=== PATIENT | male | born 1955 | race Asian ===

== ENCOUNTER 2016-08-25 11:15 | Outpatient (CLI) | payer OTHER ==
--- NOTE | 2016-08-25 14:04 | Diagnostic Imaging Report ---
Chest x-ray single view History: Cough The heart size is normal. No focal pulmonary parenchymal processes. No hilar or mediastinal abnormalities. Impression: No acute abnormalities
== END 2016-08-25 12:00 | disposition home or self-care (01) ==
LOC: RAD 11:15
PROVIDERS: ATTEND Family Medicine
DX: R07.82 Intercostal pain (principal)
CPT/HCPCS: 71010-TC

== ENCOUNTER 2016-09-22 07:06 | Outpatient (CLI) | payer OTHER ==
[2016-09-22 07:34] LABS: % BASOPHILS 1.2 % (0.0-2.0); % EOSINOPHILS 2.4 % (0.0-5.0); % LYMPHOCYTES 30.2 % (20.0-50.0); % MONOCYTES 8.1 % (2.0-10.0); % NEUTROPHILS 58.1 % (40.0-80.0); HEMATOCRIT 40.1 % (39.0-49.0); HEMOGLOBIN 13.6 gm/dL (13.2-17.3); MEAN CELL VOLUME 88.7 fl (80-99); MEAN CORPUSCULAR HGB CONC 33.8 pg (28.0-36.0); MEAN PLATELET VOLUME 8.4 fl; NEUTROPHILE ABSOLUTE 3.7 Th/cmm (1.8-8.0); PLATELET COUNT 268 Th/cmm (150-400); RED BLOOD COUNT 4.52 Mil/cmm (4.30-5.70); RED CELL DISTRIBUTION WIDTH 12.3 % (11.5-20.0)
[2016-09-22 07:38] LABS: WHITE BLOOD COUNT 6.4 Th/cmm (4.8-10.8)
[2016-09-22 07:54] LABS: ALB/GLOB RATIO 1.2 (1.0-1.8); ALKALINE PHOSPHATASE 81 U/L (34-104); ANION GAP 12.9 (7.0-16.0); BILIRUBIN,TOTAL 0.7 mg/dL (0.3-1.0); BUN - UREA NITROGEN 20 mg/dL (7-25); CALCIUM SERUM 10.1 mg/dL (8.6-10.3); CARBON DIOXIDE 29.7 mEq/L (21.0-31.0); CHLORIDE 100 mEq/L (98-107); CHOLESTEROL 122 mg/dL (<200); CREATININE - SERUM 0.8 mg/dL (0.7-1.3); GLUCOSE 107 mg/dL (70-105); POTASSIUM SERUM 3.6 mEq/L (3.5-5.1); SGOT 24 U/L (13-39); SGPT/ALT 46 U/L (7-52); SODIUM SERUM 139 mEq/L (136-145); TRIGLYCERIDES 112 mg/dL (<150)
[2016-09-23 10:19] LABS: T4 FREE 1.72 ng/dL (0.82-1.77)
== END 2016-09-22 07:25 | disposition home or self-care (01) ==
LOC: LAB 07:06
DX: E89.0 Postprocedural hypothyroidism (principal); E66.3 Overweight; I10 Essential (primary) hypertension; E78.2 Mixed hyperlipidemia; Z83.3 Family history of diabetes mellitus
CPT/HCPCS: 36415-UA; 80053-TC; 80061-TC; 82306-90; 83036-90; 84439-90; 84443-TC; 85025-TC

== ENCOUNTER 2016-10-07 07:00 | Emergency (ER) | payer OTHER ==
[2016-10-07 07:27] VITALS: BP 144/91
[2016-10-07 08:13] LABS: % BASOPHILS 0.9 % (0.0-2.0); % EOSINOPHILS 1.9 % (0.0-5.0); % LYMPHOCYTES 29.4 % (20.0-50.0); % MONOCYTES 7.2 % (2.0-10.0); % NEUTROPHILS 60.6 % (40.0-80.0); HEMATOCRIT 39.7 % (39.0-49.0); HEMOGLOBIN 13.4 gm/dL (13.2-17.3); MEAN CELL VOLUME 88.7 fl (80-99); MEAN CORPUSCULAR HEMOGLOBIN 29.9 pg (26.0-30.0); MEAN CORPUSCULAR HGB CONC 33.8 pg (28.0-36.0); MEAN PLATELET VOLUME 7.9 fl; NEUTROPHILE ABSOLUTE 5.3 Th/cmm (1.8-8.0); PLATELET COUNT 313 Th/cmm (150-400); RED BLOOD COUNT 4.48 Mil/cmm (4.30-5.70); RED CELL DISTRIBUTION WIDTH 12.1 % (11.5-20.0)
[2016-10-07 08:17] LABS: WHITE BLOOD COUNT 8.8 Th/cmm (4.8-10.8)
[2016-10-07 08:28] LABS: ALB/GLOB RATIO 1.3 (1.0-1.8); ALKALINE PHOSPHATASE 74 U/L (34-104); ANION GAP 9.1 (7.0-16.0); BILIRUBIN,TOTAL 0.6 mg/dL (0.3-1.0); BUN - UREA NITROGEN 19 mg/dL (7-25); BUN/CREATININE RATIO 21.1; CALCIUM SERUM 9.7 mg/dL (8.6-10.3); CARBON DIOXIDE 25.5 mEq/L (21.0-31.0); CHLORIDE 104 mEq/L (98-107); CREATININE - SERUM 0.9 mg/dL (0.7-1.3); GLUCOSE 118 mg/dL (70-105); INR 0.98 (0.5-1.4); POTASSIUM SERUM 3.6 mEq/L (3.5-5.1); PROTHROMBIN TIME (TEST) 10.2 SECONDS (9.5-11.5); SGOT 29 U/L (13-39); SGPT/ALT 37 U/L (7-52); SODIUM SERUM 135 mEq/L (136-145)
[2016-10-07 08:29] LABS: CHOLESTEROL 111 mg/dL (<200); TRIGLYCERIDES 80 mg/dL (<150)
--- NOTE | 2016-10-07 08:52 | Diagnostic Imaging Report ---
CHEST X-RAY: AP view INDICATION: Fall COMPARISON: Chest x-ray 08/25/2016 FINDINGS: No focal consolidation pleural effusions or evidence of a pneumothorax. Heart size normal. Degenerative changes of the spine are noted. IMPRESSION: No focal acute pulmonary process.
--- NOTE | 2016-10-07 08:55 | Diagnostic Imaging Report ---
Left knee 2 views Indication: Fall Comparison: none Findings: Mild degenerative changes are noted with marginal osteophytic spurring. Nonspecific calcification is seen along the posterior tibiofibular region possibly due to old trauma. No evidence of an acute fracture. No gross joint effusion. Distal quadriceps spurring is noted. There is mild prepatellar soft tissue swelling. Impression: No evidence of an acute fracture. Mild prepatellar soft tissue swelling Mild degenerative changes. In the setting of trauma, if clinical symptoms persist and there is continued concern for an occult fracture, follow up exams in 5-7 days is suggested.
--- NOTE | 2016-10-07 09:19 | Diagnostic Imaging Report ---
Right knee 2 views Indication: Trauma Comparison: none Findings: Mild to moderate degenerative changes are seen. There is subtle lucency seen along the superior pole of the patella. There may be a small joint effusion. There is a 4 mm calcification seen along the popliteal region. Impression: Lucency seen along the superior pole of the patella. Findings may represent age-indeterminate, possibly old trauma or may be a congenital variant. Please correlate with clinical findings and point tenderness in this region. Otherwise no evidence of an acute fracture. [id number] degenerative changes. 4 mm calcification is seen along the popliteal fossa region. Findings may represent a previous loose body. If indicated short-term follow-up MRI may be obtained. Small joint effusion suspected. In the setting of trauma, if clinical symptoms persist and there is continued concern for an occult fracture, follow up exams in 5-7 days is suggested.
--- NOTE | 2016-10-07 09:19 | ED Physician Chart ---
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 HE IS CONCERNED ABOUT HIS KNEES, WRIST AND HEADACHE. HE RECENTLY HAD THYROID SURGERY AND HAS A HISTORY OF HYPERTENSION, THYROID DISEASE AND ELEVATED CHOLESTEROL. HE CURRENTLY DENIES HEART PAIN. Allergies:: Allergies Allergy/AdvReac Type Severity Reaction Status Date / Time No Known Allergies Allergy Verified 10/07/16 07:27 Vitals:: Vital Signs - 8 hr 10/07/16 07:27 Temp 98.4 F HR 87 RR 20 BP 144/91 O2 Sat % 97 Historian:: Patient, Medical Records Review:: Nurse's Note Reviewed, Old Chart Reviewed Review of Systems - Review of Systems General/Constitutional: No fever, No chills, No weight loss, No weakness, No diaphoresis, No edema, No loss of appetite Skin: No skin lesions, No rash, No bruising Head: Headache, No light-headedness Eyes: No loss of vision, No pain, No diplopia ENT: No earache, No nasal drainage, No sore throat, No tinnitus Neck: No neck pain, No swelling, No thyromegaly, No stiffness, No mass noted Cardio Vascular: No chest pain, No palpitations, No PND, No orthopnea, No edema Pulmonary: No SOB, No cough, No sputum, No wheezing GI: No nausea, No vomiting, No diarrhea, No pain, No melena, No hematochezia, No constipation, No hematemesis G/U: No dysuria, No frequency, No hematuria Musculoskeletal: Bone or joint pain, No back pain, No muscle pain Endocrine: No polyuria, No polydipsia Psychiatric: No prior psych history, No depression, No anxiety, No suicidal ideation Hematopoietic: No bruising, No lymphadenopathy Allergic/Immuno: No urticaria, No angioedema Neurological: No syncope, No focal symptoms, No weakness, No paresthesia, No headache, No seizure, No dizziness, No confusion, No vertigo Past Medical History - Past Medical History Obtainable: Yes Past Medical History: HTN, Dyslipidemia, Thyroid disorder Family History: None Social History: Non Smoker, No Alcohol, No Drug Use Surgical History: other (THYROIDECTOMY) Psychiatricy History: None Medication: Reviewed Family Medical History - Family Member Mother History Unknown: Yes Ethnicity: Non- Living Status: Still Living Hx Family Cancer: No Hx Family Coronary Artery Disease: No Hx Family Congestive Heart Failure: No Hx Family Hypertension: No Hx Family Stroke: No Hx Family Diabetes: Yes Hx Family Seizures: No Hx Family Dementia: No Hx Family AIDS: No Hx Family HIV: No Hx Family COPD: No Hx Family Hepatitis: No Hx Family Psychiatric Problems: No Hx Family Tuberculosis: No Physical Exam - Physical Examination General/Constitutional: Awake, Well-developed, well-nourished, Alert, No distress, GCS 15, Non-toxic appearing, Ambulatory Head: Atraumatic Eyes: Lids, conjuctiva normal, PERRL, EOMI Skin: Nl inspection, No rash, No skin lesions, No ecchymosis, Well hydrated, No lymphadenopathy ENMT: External ears, nose nl, Nasal exam nl, Lips, teeth, gums nl Neck: Nontender, Full ROM w/o pain, No JVD, No nuchal rigidity, No bruit, No mass, No stridor Respiratory: Nl effort/Exclusion, Clear to Auscultation, No Wheeze/Rhonchi/Rales Cardio Vascular: RRR, No murmur, gallop, rubs, NL S1 S2 GI: No tenderness/rebounding/guarding, No organomegaly, No hernia, Normal BS's, Nondistended, No mass/bruits, No McBurney tenderness : No CVA tenderness Extremities: Full ROM, normal strength in all extremities, No edema, Normal digits & nails Other Extremities comments:: THERE IS TENDERNESS OF BOTH KNEE WITH NORMAL ROM BUT PAINFUL. BOTH WRIST ARE TENDER WITH NORMAL ROM AND THERE IS NO DEFORMITY NOTED. Neuro/Psych: Alert/oriented, DTR's symmetric, Normal sensory exam, Normal motor strength, Judgement/insight normal, Mood normal, Normal gait, No focal deficits Misc: normal gait, Normal back, No paraspinal tenderness Labs/Radiology/EKG Results - Lab Results Results: Laboratory Tests 10/07/16 10/07/16 10/07/16 07:50 07:50 07:50 WBC 8.8 D RBC 4.48 Hgb 13.4 Hct 39.7 MCV 88.7 MCH 29.9 MCHC Differential 33.8 RDW 12.1 Plt Count 313 MPV 7.9 Neutrophils % 60.6 Lymphocytes % 29.4 Monocytes % 7.2 Eosinophils % 1.9 Basophils % 0.9 PT 10.2 INR 0.98 Sodium Potassium Chloride Carbon Dioxide Anion Gap BUN Creatinine Est GFR ( Amer) Est GFR (Non-Af Amer) BUN/Creatinine Ratio Glucose Calcium Total Bilirubin AST ALT Alkaline Phosphatase Troponin I Total Protein Albumin Globulin Albumin/Globulin Ratio Triglycerides 80 Cholesterol 111 LDL Cholesterol Direct 62 L HDL Cholesterol 39 10/07/16 10/07/16 07:50 07:50 WBC RBC Hgb Hct MCV MCH MCHC Differential RDW Plt Count MPV Neutrophils % Lymphocytes % Monocytes % Eosinophils % Basophils % PT INR Sodium 135 L Potassium 3.6 Chloride 104 Carbon Dioxide 25.5 Anion Gap 9.1 BUN 19 Creatinine 0.9 Est GFR ( Amer) > 60.0 Est GFR (Non-Af Amer) > 60.0 BUN/Creatinine Ratio 21.1 Glucose 118 H Calcium 9.7 Total Bilirubin 0.6 AST 29 ALT 37 Alkaline Phosphatase 74 Troponin I 0.01 Total Protein 7.6 Albumin 4.3 Globulin 3.3 Albumin/Globulin Ratio 1.3 Triglycerides Cholesterol LDL Cholesterol Direct HDL Cholesterol - EKG Interpretations EKG Time:: 07:42 Rhythm: SINUS [place]: RIGHT Rate: 77 ED Septic Shock - . Is Septic Shock (SBP<90, OR Lactate>4 mmol\L) present?: No - <6hrs of presentation: Vital Signs: Vital Signs - 8 hr 10/07/16 07:27 Temp 98.4 F HR 87 RR 20 BP 144/91 O2 Sat % 97 Reassessment (Disposition) - Reassessment Reassessment Condition:: Improved - Diagnosis Diagnosis:: CONTUSION OF BOTH KNEES CONTUSION OF BOTH HANDS LEFT SHOULDER PAIN - Aftercare/Follow up Instructions Aftercare/Follow-Up Instructions:: Counseled pt regarding lab results/diagnosis & need follow up, Refer to Discharge Instructions, Counseled pt & family regarding lab results/diagnosis & need follow up Medication Prescribed:: MOTRIN - Patient Disposition Discharge/Transfer:: Home Condition at Disposition:: Improved
--- NOTE | 2016-10-07 09:21 | Diagnostic Imaging Report ---
Right wrist 3 views Indication: Trauma Comparison: none Findings: Mild to moderate degenerative changes are noted. Small subchondral cystic changes of the carpal bones are noted. No evidence of an acute fracture or significant focal soft tissue swelling. Impression: No evidence of an acute fracture. [id number] degenerative changes. In the setting of trauma, if clinical symptoms persist and there is continued concern for an occult fracture, follow up exams in 5-7 days is suggested.
--- NOTE | 2016-10-07 09:22 | Diagnostic Imaging Report ---
Left wrist 3 views Indication: Fall Comparison: none Findings: Mild to moderate degenerative changes are noted. An old ulnar styloid fracture is noted. No evidence of an acute fracture or significant focal soft tissue swelling. Impression: Old ulnar styloid fracture. No evidence of an acute fracture. Mild to moderate degenerative changes. In the setting of trauma, if clinical symptoms persist and there is continued concern for an occult fracture, follow up exams in 5-7 days is suggested.
--- NOTE | 2016-10-07 09:42 | Diagnostic Imaging Report ---
Head CT without intravenous contrast Indication: fall Comparison: Head CT on 08/13/2014 Technique: Axial images were obtained from the vertex to the skull base without IV contrast. Coronal reconstructions were made. Total DLP: 537, CTDI31.4 FINDINGS: Images of the brain obtained without contrast demonstrate no acute hemorrhage. No mass lesions identified. The ventricles and basal cisterns are patent. The moore-white matter differentiation is preserved. There is no mass effect or midline shift. No skull fractures identified. No soft tissue swelling. The paranasal sinuses are clear. IMPRESSION: No acute intracranial abnormality.
== END 2016-10-07 10:55 | disposition home or self-care (01) ==
LOC: ER 07:00
DX: S80.02XA Contusion of left knee, initial encounter (principal); S80.01XA Contusion of right knee, initial encounter; S60.222A Contusion of left hand, initial encounter; S60.221A Contusion of right hand, initial encounter; I10 Essential (primary) hypertension; E78.5 Hyperlipidemia, unspecified; E07.9 Disorder of thyroid, unspecified; E89.0 Postprocedural hypothyroidism; W01.0XXA Fall on same level from slipping, tripping and stumbling without subsequent striking against object, initial encounter; Y93.89 Activity, other specified; Y92.89 Other specified places as the place of occurrence of the external cause; Y99.8 Other external cause status
CPT/HCPCS: 36415-UA; 70450-TC; 71010-TC; 73100-TC-LT; 73100-TC-RT; 73560-TC-LT; 73560-TC-RT; 80053-TC; 80061-TC; 84443-TC; 84484-TC; 85025-TC; 85610-TC; 93005

== ENCOUNTER 2016-10-18 07:06 | Outpatient (CLI) | payer OTHER | END 2016-10-18 07:34 | disposition home or self-care (01) | LOC: LAB 07:06 | DX: N40.1 Benign prostatic hyperplasia with lower urinary tract symptoms (principal) | CPT/HCPCS: 84153-90 ==

== ENCOUNTER 2017-02-02 06:56 | Outpatient (CLI) | payer OTHER ==
[2017-02-02 07:30] LABS: % BASOPHILS 0.1 % (0.0-2.0); % EOSINOPHILS 2.9 % (0.0-5.0); % MONOCYTES 8.2 % (2.0-10.0); % NEUTROPHILS 64.8 % (40.0-80.0); HEMATOCRIT 42.3 % (39.0-49.0); HEMOGLOBIN 14.1 gm/dL (13.2-17.3); MEAN CELL VOLUME 89.4 fl (80-99); MEAN CORPUSCULAR HEMOGLOBIN 29.7 pg (26.0-30.0); MEAN CORPUSCULAR HGB CONC 33.2 pg (28.0-36.0); MEAN PLATELET VOLUME 7.8 fl; NEUTROPHILE ABSOLUTE 5.1 Th/cmm (1.8-8.0); PLATELET COUNT 303 Th/cmm (150-400); RED BLOOD COUNT 4.73 Mil/cmm (4.30-5.70); WHITE BLOOD COUNT 7.7 Th/cmm (4.8-10.8)
[2017-02-02 07:51] LABS: ALB/GLOB RATIO 1.3 (1.0-1.8); ALKALINE PHOSPHATASE 74 U/L (34-104); ANION GAP 8.1 (7.0-16.0); BILIRUBIN,TOTAL 0.7 mg/dL (0.3-1.0); BUN - UREA NITROGEN 16 mg/dL (7-25); BUN/CREATININE RATIO 22.9; CALCIUM SERUM 9.8 mg/dL (8.6-10.3); CARBON DIOXIDE 29.6 mEq/L (21.0-31.0); CHLORIDE 101 mEq/L (98-107); CHOLESTEROL 119 mg/dL (<200); CREATININE - SERUM 0.7 mg/dL (0.7-1.3); GLUCOSE 103 mg/dL (70-105); POTASSIUM SERUM 3.7 mEq/L (3.5-5.1); SGOT 26 U/L (13-39); SGPT/ALT 32 U/L (7-52); SODIUM SERUM 135 mEq/L (136-145); TRIGLYCERIDES 82 mg/dL (<150)
[2017-02-04 15:49] LABS: T4 FREE 1.73 ng/dL (0.82-1.77)
== END 2017-02-02 07:25 | disposition home or self-care (01) ==
LOC: LAB 06:56
DX: I10 Essential (primary) hypertension (principal); E89.0 Postprocedural hypothyroidism; E55.9 Vitamin D deficiency, unspecified; E66.3 Overweight; R73.03 Prediabetes
CPT/HCPCS: 36415-UA; 80053-TC; 80061-TC; 82306-90; 83036-90; 84439-90; 84443-TC; 85025-TC

== ENCOUNTER 2017-11-03 07:12 | Emergency (ER) | payer OTHER ==
--- NOTE | 2017-11-03 07:56 | ED Physician Chart ---
ED Chief Complaint/HPI - Patient Information Date Seen:: 11/03/17 Time Seen:: 07:53 Chief Complaint:: Fever and cough History of Present Illness:: 62 yo male had fever, chills and cough productive of clear sputum for 3 days. He also had diffuse body ache. He had low grade fever in the ER. Patient had similar cough a month ago treated with Azithromycin for 5 days. Allergies:: Allergies Allergy/AdvReac Type Severity Reaction Status Date / Time No Known Allergies Allergy Verified 10/07/16 07:27 Vitals:: Vital Signs - 8 hr 11/03/17 07:43 Temp 98.0 F HR 88 RR 17 BP 155/88 O2 Sat % 95 ED Review of Systems - Review of Systems General/Constitutional: Fever, Chills Skin: No bruising Head: No headache Eyes: No pain ENT: No nasal drainage Neck: No neck pain Cardio Vascular: No chest pain Pulmonary: Cough, Sputum GI: No nausea, No vomiting Musculoskeletal: No bone or joint pain Hematopoietic: No bruising Neurological: No focal symptoms ED Past Medical History - Past Medical History Past Medical History: HTN, Dyslipidemia, PUD/GERD, Thyroid disorder Social History: Non Smoker, Alcohol, No Drug Use Surgical History: other (Thyroidectomy) Family Medical History - Family Member Mother History Unknown: Yes Ethnicity: Non- Living Status: Still Living Hx Family Cancer: No Hx Family Coronary Artery Disease: No Hx Family Congestive Heart Failure: No Hx Family Hypertension: No Hx Family Stroke: No Hx Family Diabetes: Yes Hx Family Seizures: No Hx Family Dementia: No Hx Family AIDS: No Hx Family HIV: No Hx Family COPD: No Hx Family Hepatitis: No Hx Family Psychiatric Problems: No Hx Family Tuberculosis: No ED Physical Exam - Physical Examination General/Constitutional: Awake, Alert Head: Atraumatic Eyes: PERRL Skin: No ecchymosis ENMT: Nasal exam nl Neck: No nuchal rigidity Other Respiratory comments:: b/l mild rhonchi Cardio Vascular: RRR, No murmur, gallop, rubs, NL S1 S2 GI: No tenderness/rebounding/guarding Extremities: normal strength in all extremities Neuro/Psych: No focal deficits ED Labs/Radiology/EKG Results - Lab Results Results: Laboratory Last Values WBC 13.9 Th/cmm (4.8-10.8) H 11/03/17 08:15 RBC 4.80 Mil/cmm (4.30-5.70) 11/03/17 08:15 Hgb 14.2 gm/dL (12-16) 11/03/17 08:15 Hct 42.8 % (41.0-60) 11/03/17 08:15 MCV 89.1 fl (80-99) 11/03/17 08:15 MCH 29.5 pg (26.0-30.0) 11/03/17 08:15 MCHC Differential 33.0 pg (28.0-36.0) 11/03/17 08:15 RDW 13.2 % (11.5-20.0) 11/03/17 08:15 Plt Count 280 Th/cmm (150-400) 11/03/17 08:15 MPV 7.9 fl 11/03/17 08:15 Neutrophils % 71.6 % (40.0-80.0) 11/03/17 08:15 Lymphocytes % 19.2 % (20.0-50.0) L 11/03/17 08:15 Monocytes % 6.7 % (2.0-10.0) 11/03/17 08:15 Eosinophils % 2.5 % (0.0-5.0) 11/03/17 08:15 Basophils % 0.0 % (0.0-2.0) 11/03/17 08:15 Sodium 134 mEq/L (136-145) L 11/03/17 08:15 Potassium 3.5 mEq/L (3.5-5.1) 11/03/17 08:15 Chloride 98 mEq/L (98-107) 11/03/17 08:15 Carbon Dioxide 27.4 mEq/L (21.0-31.0) 11/03/17 08:15 Anion Gap 12.1 (7.0-16.0) 11/03/17 08:15 BUN 11 mg/dL (7-25) 11/03/17 08:15 Creatinine 0.8 mg/dL (0.7-1.3) 11/03/17 08:15 Est GFR ( Amer) > 60.0 ml/min (>90) 11/03/17 08:15 Est GFR (Non-Af Amer) > 60.0 ml/min 11/03/17 08:15 BUN/Creatinine Ratio 13.8 11/03/17 08:15 Glucose 98 mg/dL (70-105) 11/03/17 08:15 Whole Bld Lactic Acid 0.69 mmol/L (0.60-1.99) 11/03/17 08:40 Calcium 9.3 mg/dL (8.6-10.3) 11/03/17 08:15 Total Bilirubin 0.6 mg/dL (0.3-1.0) 11/03/17 08:15 AST 38 U/L (13-39) 11/03/17 08:15 ALT 59 U/L (7-52) H 11/03/17 08:15 Alkaline Phosphatase 74 U/L (34-104) 11/03/17 08:15 Troponin I < 0.01 ng/mL (0.01-0.05) L 11/03/17 08:15 B-Natriuretic Peptide < 5.0 pg/mL (5.0-100.0) L 11/03/17 08:15 Total Protein 8.1 gm/dL (6.0-8.3) 11/03/17 08:15 Albumin 4.6 gm/dL (4.2-5.5) 11/03/17 08:15 Globulin 3.5 gm/dL 11/03/17 08:15 Albumin/Globulin Ratio 1.3 (1.0-1.8) 11/03/17 08:15 Urine Source RANDOM 11/03/17 08:00 Urine Color YELLOW 11/03/17 08:00 Urine Clarity CLEAR (CLEAR) 11/03/17 08:00 Urine pH 6.0 (4.6 - 8.0) 11/03/17 08:00 Ur Specific [place] 1.010 (1.005-1.030) 11/03/17 08:00 Urine Protein NEGATIVE mg/dL (NEGATIVE) 11/03/17 08:00 Urine Glucose (UA) NEGATIVE mg/dL (NEGATIVE) 11/03/17 08:00 Urine Ketones NEGATIVE mg/dL (NEGATIVE) 11/03/17 08:00 Urine Blood TRACE (NEGATIVE) 11/03/17 08:00 Urine Nitrate NEGATIVE (NEGATIVE) 11/03/17 08:00 Urine Bilirubin NEGATIVE (NEGATIVE) 11/03/17 08:00 Urine Urobilinogen 0.2 E.U./dL (0.2 - 1.0) 11/03/17 08:00 Ur Leukocyte Esterase NEGATIVE (NEGATIVE) 11/03/17 08:00 Urine RBC 2-5 /hpf (0-5) H 11/03/17 08:00 Urine WBC 0-2 /hpf (0-5) 11/03/17 08:00 Ur Epithelial Cells OCCASIONAL /lpf (FEW) 11/03/17 08:00 Urine Bacteria OCCASIONAL /hpf (NONE SEEN) 11/03/17 08:00 Urine Mucus FEW /lpf (FEW) 11/03/17 08:00 - Radiology Results Results: CXR: no consolidation ED Assessment - Assessment General Assessment: Bronchitis Leukocytosis Assessment/Comments:: CBC, CMP, UA CXR, EKG DuoNeb Rocephin Azithromycin NS 1L IV bolus D/c home Levofloxacin 500mg po qd x 7 days F/u PCP or return to ER if symptoms worsen ED Septic Shock - . Is Septic Shock (SBP<90, OR Lactate>4 mmol\L) present?: No - <6hrs of presentation: Vital Signs: Vital Signs - 8 hr 11/03/17 07:43 Temp 98.0 F HR 88 RR 17 BP 155/88 O2 Sat % 95 ED Reassessment (Disposition) - Reassessment Reassessment Condition:: Improved - Patient Disposition Discharge/Transfer:: Home ED Discharge Plan - Patient Disposition Admit/Discharge/Transfer: PT DISCHARGED HOME Condition at Disposition: Stable Prescriptions: Azithromycin [Zithromax] 250 mg PO UD #6 tab Instructions: Upper Respiratory Infection, Adult, [id number] Additional Instructions: Follow up with PCP in 2-3 days. Return to ED if condition worsens. Take medications as prescribed. Forms: Work Release Form
[2017-11-03] MEDS ORDERED: Albuterol/Ipratropium Neb 3 ML AERS HHN ONE ×2 (07:58→08:07)
[2017-11-03 08:04] LABS: URINE MICROSCOPIC INDICATED? YES; URINE SOURCE RANDOM
[2017-11-03 08:08] LABS: URINE BILIRUBIN NEGATIVE (NEGATIVE); URINE BLOOD TRACE (NEGATIVE); URINE CLARITY CLEAR (CLEAR); URINE COLOR YELLOW; URINE GLUCOSE (UA) NEGATIVE (NEGATIVE); URINE KETONE NEGATIVE (NEGATIVE); URINE LEUKOCYTE ESTERASE NEGATIVE (NEGATIVE); URINE NITRATE NEGATIVE (NEGATIVE); URINE PROTEIN NEGATIVE (NEGATIVE); URINE UROBILINOGEN 0.2 E.U./dL (0.2 - 1.0)
[2017-11-03 08:26] LABS: % EOSINOPHILS 2.5 % (0.0-5.0); % LYMPHOCYTES 19.2 % (20.0-50.0); % MONOCYTES 6.7 % (2.0-10.0); % NEUTROPHILS 71.6 % (40.0-80.0); EOSINOPHILE ABSOLUTE 0.3 Th/cmm (0.1-0.4); HEMATOCRIT 42.8 % (41.0-60); HEMOGLOBIN 14.2 gm/dL (12-16); LYMPHOCYTE ABSOLUTE 2.7 Th/cmm (1.5-3.0); MEAN CELL VOLUME 89.1 fl (80-99); MEAN CORPUSCULAR HEMOGLOBIN 29.5 pg (26.0-30.0); MEAN PLATELET VOLUME 7.9 fl; MONOCYTE ABSOLUTE 0.9 Th/cmm (0.3-1.0); PLATELET COUNT 280 Th/cmm (150-400); RED CELL DISTRIBUTION WIDTH 13.2 % (11.5-20.0); WHITE BLOOD COUNT 13.9 Th/cmm (4.8-10.8)
--- NOTE | 2017-11-03 08:31 | Diagnostic Imaging Report ---
Portable chest x-ray History: Cough Allowing for portable technique the heart size is normal. No focal pulmonary parenchymal processes. No hilar or mediastinal abnormalities. Impression: No acute abnormalities.
[2017-11-03] MEDS ORDERED: cefTRIAXone 1 GM in Sodium Chloride 0.9% 50 ML IV ONE (08:38)
[2017-11-03] MEDS ORDERED: Azithromycin 500 MG in Sodium Chloride 0.9% 250 ML IV ONE (08:38)
[2017-11-03 08:40] LABS: ALB/GLOB RATIO 1.3 (1.0-1.8); ALBUMIN 4.6 gm/dL (4.2-5.5); ALKALINE PHOSPHATASE 74 U/L (34-104); ANION GAP 12.1 (7.0-16.0); BILIRUBIN,TOTAL 0.6 mg/dL (0.3-1.0); BUN - UREA NITROGEN 11 mg/dL (7-25); CALCIUM SERUM 9.3 mg/dL (8.6-10.3); CARBON DIOXIDE 27.4 mEq/L (21.0-31.0); CHLORIDE 98 mEq/L (98-107); CREATININE - SERUM 0.8 mg/dL (0.7-1.3); GFR AFRICAN-AMERICAN > 60.0 ml/min (>90); GFR NON AFRICAN-AMERICAN > 60.0 ml/min; GLUCOSE 98 mg/dL (70-105); POTASSIUM SERUM 3.5 mEq/L (3.5-5.1); SGOT 38 U/L (13-39); SGPT/ALT 59 U/L (7-52); SODIUM SERUM 134 mEq/L (136-145); TOTAL PROTEIN,SERUM 8.1 gm/dL (6.0-8.3)
[2017-11-03] MEDS ORDERED: Sodium Chloride 0.9% 1,000 ML IV ONE (08:42)
[2017-11-03 11:18] LABS: URINE BACTERIA OCCASIONAL /hpf (NONE SEEN); URINE EPITHELIAL CELLS OCCASIONAL /lpf (FEW); URINE WBC 0-2 /hpf (0-5)
== END 2017-11-03 12:12 | disposition home or self-care (01) ==
LOC: ER 07:12
DX: J40 Bronchitis, not specified as acute or chronic (principal); D72.829 Elevated white blood cell count, unspecified; I10 Essential (primary) hypertension; E78.5 Hyperlipidemia, unspecified; K21.9 Gastro-esophageal reflux disease without esophagitis; K27.9 Peptic ulcer, site unspecified, unspecified as acute or chronic, without hemorrhage or perforation; E07.9 Disorder of thyroid, unspecified
CPT/HCPCS: 99285; 96365; 96368; 94640; 93005; 71045; 84484; 83880; 36415; 83605; 85025; 81001; 80053; 87040; J0696; J0456; J7030

== ENCOUNTER 2017-12-26 05:53 | Outpatient (CLI) | payer OTHER ==
[2017-12-26 06:14] LABS: % BASOPHILS 0.8 % (0.0-2.0); % EOSINOPHILS 2.3 % (0.0-5.0); % LYMPHOCYTES 26.7 % (20.0-50.0); % MONOCYTES 8.3 % (2.0-10.0); % NEUTROPHILS 61.9 % (40.0-80.0); BASOPHILE ABSOLUTE 0.1 Th/cumm (0-0.2); EOSINOPHILE ABSOLUTE 0.2 Th/cmm (0.1-0.4); HEMATOCRIT 41.3 % (41.0-60); HEMOGLOBIN 13.7 gm/dL (12-16); LYMPHOCYTE ABSOLUTE 2.2 Th/cmm (1.5-3.0); MEAN CELL VOLUME 89.4 fl (80-99); MEAN CORPUSCULAR HEMOGLOBIN 29.8 pg (26.0-30.0); MEAN CORPUSCULAR HGB CONC 33.3 pg (28.0-36.0); MEAN PLATELET VOLUME 7.1 fl; MONOCYTE ABSOLUTE 0.7 Th/cmm (0.3-1.0); NEUTROPHILE ABSOLUTE 4.9 Th/cmm (1.8-8.0); PLATELET COUNT 350 Th/cmm (150-400); RED BLOOD COUNT 4.61 Mil/cmm (4.30-5.70); RED CELL DISTRIBUTION WIDTH 13.2 % (11.5-20.0); WHITE BLOOD COUNT 8.1 Th/cmm (4.8-10.8)
[2017-12-26 06:40] LABS: ALB/GLOB RATIO 1.5 (1.0-1.8); ALBUMIN 4.5 gm/dL (4.2-5.5); ALKALINE PHOSPHATASE 77 U/L (34-104); ANION GAP 10.8 (7.0-16.0); BILIRUBIN,TOTAL 0.3 mg/dL (0.3-1.0); BUN - UREA NITROGEN 12 mg/dL (7-25); CALCIUM SERUM 9.2 mg/dL (8.6-10.3); CARBON DIOXIDE 26.8 mEq/L (21.0-31.0); CHLORIDE 102 mEq/L (98-107); CHOLESTEROL 136 mg/dL (<200); CREATININE - SERUM 0.6 mg/dL (0.7-1.3); GFR AFRICAN-AMERICAN > 60.0 ml/min (>90); GFR NON AFRICAN-AMERICAN > 60.0 ml/min; GLUCOSE 108 mg/dL (70-105); HDL -HIGH DENSITY LIPOPROTEIN 46 mg/dL (23-92); POTASSIUM SERUM 3.6 mEq/L (3.5-5.1); SGOT 20 U/L (13-39); SGPT/ALT 31 U/L (7-52); SODIUM SERUM 136 mEq/L (136-145); TOTAL PROTEIN,SERUM 7.5 gm/dL (6.0-8.3); TRIGLYCERIDES 120 mg/dL (<150)
[2017-12-26 17:20] LABS: A1C % 6.1 % (4.0-6.0)
[2017-12-27 08:10] LABS: T4 FREE 1.6 ng/dL (0.82-1.77)
== END 2017-12-26 07:04 | disposition home or self-care (01) ==
LOC: LAB 05:53
PROVIDERS: ATTEND Family Medicine
DX: I10 Essential (primary) hypertension (principal); E78.2 Mixed hyperlipidemia; E55.9 Vitamin D deficiency, unspecified; R73.09 Other abnormal glucose; E89.0 Postprocedural hypothyroidism
CPT/HCPCS: 36415-UA; 80053-TC; 80061-TC; 82306-90; 83036-90; 84439-90; 84443-TC; 85025-TC

== ENCOUNTER 2018-01-11 17:04 | Emergency (ER) | payer OTHER ==
--- NOTE | 2018-01-11 17:42 | ED Physician Chart ---
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 No loss of consciousness. Patient complains of posterior neck pain. Also complains of right distal forearm and left low back pain. This morning a door closed on his right small finger. Allergies:: Allergies Allergy/AdvReac Type Severity Reaction Status Date / Time No Known Allergies Allergy Verified 10/07/16 07:27 Vitals:: Vital Signs - 8 hr 01/11/18 17:22 Temp 97.8 F HR 89 RR 16 BP 146/81 O2 Sat % 98 Historian:: Patient ED Review of Systems - Review of Systems General/Constitutional: No fever, No chills, No weight loss, No weakness, No diaphoresis, No edema, No loss of appetite Skin: No skin lesions, No rash, No bruising Head: No headache, No light-headedness Eyes: No loss of vision, No pain, No diplopia ENT: No earache, No nasal drainage, No sore throat, No tinnitus Neck: Neck pain, No swelling, No thyromegaly, No stiffness, No mass noted Cardio Vascular: No chest pain, No palpitations, No PND, No orthopnea, No edema Pulmonary: No SOB, No cough, No sputum, No wheezing GI: No nausea, No vomiting, No diarrhea, No pain, No melena, No hematochezia, No constipation, No hematemesis G/U: No dysuria, No frequency, No hematuria Musculoskeletal: Bone or joint pain, No back pain, No muscle pain Endocrine: No polyuria, No polydipsia Psychiatric: No prior psych history, No depression, No anxiety, No suicidal ideation Hematopoietic: No bruising, No lymphadenopathy Allergic/Immuno: No urticaria, No angioedema Neurological: No syncope, No focal symptoms, No weakness, No paresthesia, No headache, No seizure, No dizziness, No confusion, No vertigo ED Past Medical History - Past Medical History Past Medical History: HTN, Dyslipidemia, Other (hypercholesterolemia; gastritis) Family History: HTN Social History: Non Smoker, No Alcohol Surgical History: other (total thyroidectomy for suspicion of thyroid carcinoma) Psychiatricy History: None Medication: Reviewed Family Medical History - Family Member Mother History Unknown: Yes Ethnicity: Non- Living Status: Still Living Hx Family Cancer: No Hx Family Coronary Artery Disease: No Hx Family Congestive Heart Failure: No Hx Family Hypertension: No Hx Family Stroke: No Hx Family Diabetes: Yes Hx Family Seizures: No Hx Family Dementia: No Hx Family AIDS: No Hx Family HIV: No Hx Family COPD: No Hx Family Hepatitis: No Hx Family Psychiatric Problems: No Hx Family Tuberculosis: No ED Physical Exam - Physical Examination General/Constitutional: Awake, Well-developed, well-nourished, No distress Head: Atraumatic Eyes: Lids, conjuctiva normal, PERRL Skin: Nl inspection, No rash, No skin lesions, No ecchymosis ENMT: External ears, nose nl, TM canals nl, Nasal exam nl, Lips, teeth, gums nl Other Neck comments:: Tenderness right posterior neck just to the right of the midline; range of motion of the neck: 85 forward flexion; 90 extension; 90 right and 75 left rotation; 20 lateral flexion Respiratory: Nl effort/Exclusion, Clear to Auscultation, No Wheeze/Rhonchi/Rales Cardio Vascular: RRR, No murmur, gallop, rubs GI: No tenderness/rebounding/guarding : No CVA tenderness Other Extremities comments:: Right forearm: Tenderness ulnar side about 4 cm proximal to the wrist Neuro/Psych: No focal deficits Other Misc comments:: Left low back: Tenderness over the left pelvic rim. Right small finger: 3 mm subungual hematoma under base of nail. ED Labs/Radiology/EKG Results - Radiology Results Results: X-ray right forearm negative; x-ray AP of the pelvis showed arthritic changes otherwise negative; CT of cervical spine showed extensive degenerative change ED Assessment - Assessment General Assessment: Will take patient off work tomorrow ED Septic Shock - <6hrs of presentation: Vital Signs: Vital Signs - 8 hr 01/11/18 17:22 Temp 97.8 F HR 89 RR 16 BP 146/81 O2 Sat % 98 ED Reassessment (Disposition) - Reassessment Reassessment Condition:: Improved - Diagnosis Diagnosis:: Contusion posterior neck; right distal forearm contusion; contusion left low back; subungual hematoma right small finger - Aftercare/Follow up Instructions Aftercare/Follow-Up Instructions:: Refer to Discharge Instructions - Patient Disposition Discharge/Transfer:: Home Condition at Disposition:: Stable, Unchanged
--- NOTE | 2018-01-12 07:43 | Diagnostic Imaging Report ---
Pelvis single view Indication: Trauma Comparison: None Findings: Mild degenerative changes of bilateral hip joints are noted. Enthesophyte formation seen along the bilateral greater trochanteric regions. A skinfold is seen overlying the left greater trochanter. No evidence of an acute fracture or dislocation. Degenerative change lower lumbar spine are also noted. Postsurgical changes of right lower quadrant noted. Impression: No evidence of an acute fracture. Degenerative changes. In the setting of trauma, if clinical symptoms persist and there is continued concern for an occult fracture, follow up exams in 5-7 days is suggested.
--- NOTE | 2018-01-12 07:50 | Diagnostic Imaging Report ---
CT cervical spine without IV contrast HISTORY: Trauma COMPARISON: None Technique: Axial images were obtained from the skull base to the upper thoracic spine without IV contrast. Multiplanar reconstructions were made. Total DLP: 364, CTDI19.4 FINDINGS: Images of the cervical spine obtained without contrast demonstrate no evidence of an acute fracture or subluxation. Moderate to advanced multilevel degenerative changes are seen with multilevel bridging large osteophytic spurs. Posterior disc osteophyte complexes are also seen at C2/C3, C3/C4, C4/C5 largest at C3/C4 measuring 3 to 4 mm causing moderate spinal canal narrowing. No prevertebral soft tissue swelling. There is a hypodense nodule of the left lobe of thyroid gland. IMPRESSION: No evidence of acute fracture or subluxation. Extensive multilevel degenerative changes. Hypodense nodule within the left lower thyroid gland. Recommend short-term follow-up ultrasound for further assessment.
--- NOTE | 2018-01-12 07:54 | Diagnostic Imaging Report ---
Right forearm 2 views Indication: Trauma Comparison: none Findings: There is mild negative ulnar variance. Mild degenerative changes are noted. Spurring of the lateral condyle is noted. 2 mm ossicle is seen adjacent the proximal ulna, possibly due to old trauma. No evidence of an acute fracture or significant focal soft tissue swelling. Impression: No evidence of an acute fracture. Mild degenerative changes. In the setting of trauma, if clinical symptoms persist and there is continued concern for an occult fracture, follow up exams in 5-7 days is suggested.
== END 2018-01-11 20:10 | disposition home or self-care (01) ==
LOC: ER 17:04
DX: M79.631 Pain in right forearm (principal); S10.93XA Contusion of unspecified part of neck, initial encounter; S30.0XXA Contusion of lower back and pelvis, initial encounter; S50.11XA Contusion of right forearm, initial encounter; S60.151A Contusion of right little finger with damage to nail, initial encounter; I10 Essential (primary) hypertension; E78.5 Hyperlipidemia, unspecified; W18.09XA Striking against other object with subsequent fall, initial encounter; Y93.89 Activity, other specified; Y92.89 Other specified places as the place of occurrence of the external cause; Y99.8 Other external cause status
CPT/HCPCS: 72125-TC; 72170-TC; 73090-TC-RT; Z7502

== ENCOUNTER 2018-05-04 09:18 | Outpatient (CLI) | payer OTHER ==
--- NOTE | 2018-05-04 11:03 | Diagnostic Imaging Report ---
The left knee (3 views) HISTORY: Pain No acute bony abnormalities. No fractures. Joint spaces appear normal. Mild narrowing the patellofemoral joint space. Spur formation extends off the anterior superior margin of the patella. IMPRESSION: 1. No acute abnormalities 2. Mild degenerative changes
--- NOTE | 2018-05-04 11:04 | Diagnostic Imaging Report ---
Right knee (3 views) HISTORY: Pain Spur formation noted off the medial femoral condyle and medial tibial plateau. Hypertrophic spur formation also extends off the lateral tibial plateau. Narrowing of the patellofemoral joint space with mild hypertrophic bony changes. No acute abnormalities. No fractures. IMPRESSION: Mild to moderate degenerative joint disease
== END 2018-05-04 10:25 | disposition home or self-care (01) ==
LOC: RAD 09:18
PROVIDERS: ATTEND Family Medicine
DX: M17.0 Bilateral primary osteoarthritis of knee (principal); I10 Essential (primary) hypertension
CPT/HCPCS: 73562-TC-LT; 73562-TC-RT

== ENCOUNTER 2018-08-02 09:37 | Outpatient (CLI) | payer OTHER ==
[2018-08-02 10:16] LABS: % BASOPHILS 0.5 % (0.0-2.0); % EOSINOPHILS 1.6 % (0.0-5.0); % LYMPHOCYTES 30.9 % (20.0-50.0); % MONOCYTES 6.7 % (2.0-10.0); % NEUTROPHILS 60.3 % (40.0-80.0); EOSINOPHILE ABSOLUTE 0.2 Th/cmm (0.1-0.4); HEMOGLOBIN 13.8 gm/dL (12-16); MEAN CELL VOLUME 87.5 fl (80-99); MEAN CORPUSCULAR HEMOGLOBIN 28.7 pg (26.0-30.0); MEAN CORPUSCULAR HGB CONC 32.8 pg (28.0-36.0); MEAN PLATELET VOLUME 7.6 fl; MONOCYTE ABSOLUTE 0.6 Th/cmm (0.3-1.0); NEUTROPHILE ABSOLUTE 5.8 Th/cmm (1.8-8.0); PLATELET COUNT 367 Th/cmm (150-400); RED CELL DISTRIBUTION WIDTH 12.9 % (11.5-20.0); WHITE BLOOD COUNT 9.6 Th/cmm (4.8-10.8)
[2018-08-02 10:36] LABS: ALB/GLOB RATIO 1.3 (1.0-1.8); ALBUMIN 4.3 gm/dL (4.2-5.5); ALKALINE PHOSPHATASE 82 U/L (34-104); BILIRUBIN,TOTAL 0.4 mg/dL (0.3-1.0); BUN - UREA NITROGEN 16 mg/dL (7-25); CALCIUM SERUM 9.8 mg/dL (8.6-10.3); CARBON DIOXIDE 25.2 mEq/L (21.0-31.0); CHLORIDE 101 mEq/L (98-107); CHOLESTEROL 141 mg/dL (<200); CREATININE - SERUM 0.7 mg/dL (0.7-1.3); GFR AFRICAN-AMERICAN > 60.0 ml/min (>90); GFR NON AFRICAN-AMERICAN > 60.0 ml/min; GLUCOSE 218 mg/dL (70-105); HDL -HIGH DENSITY LIPOPROTEIN 45 mg/dL (23-92); POTASSIUM SERUM 3.2 mEq/L (3.5-5.1); SGOT 18 U/L (13-39); SGPT/ALT 26 U/L (7-52); SODIUM SERUM 137 mEq/L (136-145); TOTAL PROTEIN,SERUM 7.7 gm/dL (6.0-8.3); TRIGLYCERIDES 145 mg/dL (<150)
[2018-08-03 11:18] LABS: T4 FREE 1.61 ng/dL (0.82-1.77)
== END 2018-08-02 10:15 | disposition home or self-care (01) ==
LOC: LAB 09:37
DX: I10 Essential (primary) hypertension (principal); E55.9 Vitamin D deficiency, unspecified; E89.0 Postprocedural hypothyroidism; R73.09 Other abnormal glucose; E78.2 Mixed hyperlipidemia
CPT/HCPCS: 36415-UA; 80053-TC; 80061-TC; 82306-90; 83036-90; 84439-90; 84443-TC; 85025-TC

== ENCOUNTER 2018-11-16 15:14 | Outpatient (CLI) | payer OTHER ==
--- NOTE | 2018-11-17 08:19 | Diagnostic Imaging Report ---
Left lower extremity Doppler venous ultrasound exam HISTORY: Pain/swelling Sonographic sector images were obtained through the deep venous systems of the left leg. Associated Doppler data was obtained. The exam demonstrates patency of the common femoral, superficial femoral, popliteal, and posterior tibial veins. Specifically, no thrombus is seen. There are normal compressibility and augmentation responses. IMPRESSION: Negative exam for deep vein thrombophlebitis.
== END 2018-11-16 16:00 | disposition home or self-care (01) ==
LOC: RAD 15:14
PROVIDERS: ATTEND Family Medicine
DX: M79.89 Other specified soft tissue disorders (principal)
CPT/HCPCS: 93971-TC-LT

== ENCOUNTER 2019-01-15 07:22 | Outpatient (CLI) | payer OTHER ==
--- NOTE | 2019-01-15 10:11 | Diagnostic Imaging Report ---
Abdominal ultrasound HISTORY: Pain The exam is suboptimal and limited due to bowel gas. Incomplete visualization the liver. No obvious focal lesions. No definite abnormality seen within the gallbladder. No biliary dilatation. Pancreas cannot be seen due to bowel gas. No focal renal lesions. No hydronephrosis. The spleen could not be clearly visualized due to bowel gas. No other retroperitoneal or intra-abdominal abnormalities. IMPRESSION: 1. Suboptimal and limited exam due to bowel gas 2. No obvious abnormalities
== END 2019-01-15 08:10 | disposition home or self-care (01) ==
LOC: RAD 07:22
PROVIDERS: ATTEND Family Medicine
DX: R14.0 Abdominal distension (gaseous) (principal); E89.0 Postprocedural hypothyroidism
CPT/HCPCS: 76700-TC

== ENCOUNTER 2019-01-24 07:21 | Outpatient (CLI) | payer OTHER ==
[2019-01-24 07:46] LABS: % BASOPHILS 0.4 % (0.0-2.0); % EOSINOPHILS 2.2 % (0.0-5.0); % MONOCYTES 8.3 % (2.0-10.0); % NEUTROPHILS 57.1 % (40.0-80.0); EOSINOPHILE ABSOLUTE 0.2 Th/cmm (0.1-0.4); HEMATOCRIT 43.2 % (41.0-60); HEMOGLOBIN 14.4 gm/dL (12-16); LYMPHOCYTE ABSOLUTE 3.1 Th/cmm (1.5-3.0); MEAN CORPUSCULAR HEMOGLOBIN 29.4 pg (26.0-30.0); MEAN CORPUSCULAR HGB CONC 33.4 pg (28.0-36.0); MONOCYTE ABSOLUTE 0.8 Th/cmm (0.3-1.0); NEUTROPHILE ABSOLUTE 5.6 Th/cmm (1.8-8.0); PLATELET COUNT 377 Th/cmm (150-400); RED BLOOD COUNT 4.91 Mil/cmm (4.30-5.70); RED CELL DISTRIBUTION WIDTH 12.8 % (11.5-20.0); WHITE BLOOD COUNT 9.7 Th/cmm (4.8-10.8)
[2019-01-24 08:49] LABS: ALB/GLOB RATIO 1.4 (1.0-1.8); ALBUMIN 4.5 gm/dL (4.2-5.5); ALKALINE PHOSPHATASE 88 U/L (34-104); ANION GAP 10.4 (7.0-16.0); BILIRUBIN,TOTAL 0.6 mg/dL (0.3-1.0); BUN - UREA NITROGEN 13 mg/dL (7-25); CALCIUM SERUM 9.7 mg/dL (8.6-10.3); CARBON DIOXIDE 27.1 mEq/L (21.0-31.0); CHLORIDE 102 mEq/L (98-107); CHOLESTEROL 117 mg/dL (<200); CREATININE - SERUM 0.6 mg/dL (0.7-1.3); GFR AFRICAN-AMERICAN > 60.0 ml/min (>90); GFR NON AFRICAN-AMERICAN > 60.0 ml/min; GLUCOSE 105 mg/dL (70-105); HDL -HIGH DENSITY LIPOPROTEIN 40 mg/dL (23-92); POTASSIUM SERUM 3.5 mEq/L (3.5-5.1); SGOT 25 U/L (13-39); SGPT/ALT 43 U/L (7-52); SODIUM SERUM 136 mEq/L (136-145); TOTAL PROTEIN,SERUM 7.8 gm/dL (6.0-8.3); TRIGLYCERIDES 101 mg/dL (<150)
[2019-01-25 13:08] LABS: A1C 6.3 % (4.8-5.6)
[2019-01-26 06:06] LABS: T4 FREE 1.45 ng/dL (0.82-1.77)
== END 2019-01-24 08:03 ==
LOC: LAB 07:21
PROVIDERS: ATTEND Emergency Medicine
DX: E89.0 Postprocedural hypothyroidism (principal); I10 Essential (primary) hypertension; R73.09 Other abnormal glucose; E55.9 Vitamin D deficiency, unspecified; E78.2 Mixed hyperlipidemia
CPT/HCPCS: 36415-UA; 80053-TC; 80061-TC; 82306-90; 83036-90; 84439-90; 84443-TC; 85025-TC